=== PATIENT | male | born 1985 | race Caucasian/White ===

== ENCOUNTER 2016-11-16 20:47 | Emergency (ER) | payer SELFPAY ==
[~2016-11-16] VITALS: Ht 188 cm; Wt 72.6 kg
[2016-11-16] MEDS ORDERED: ACETAMINOPHEN 325 MG TAB PO ONE (21:15)
[2016-11-16] MEDS ORDERED: IBUPROFEN 600 MG TAB PO ONE (21:15)
[2016-11-16] MEDS ORDERED: SODIUM CHLORIDE 0.9% 1,000 ML IV ONE (22:14)
[2016-11-16 22:33] LABS: Albumin 3.7 g/dL (3.4-5.0); Anion Gap 10 (5-15); Aspartate Aminotransferase 18 U/L (15-37); BUN/Creatinine Ratio 22.9; Blood Urea Nitrogen 22 mg/dL (7-18); Calcium 8.4 mg/dL (8.5-10.1); Carbon Dioxide 25 mmol/L (21-32); Chloride 102 mmol/L (98-107); GFR African American 118 mL/min; GFR Non-African American 98 mL/min; Glucose 104 mg/dL (74-106); Hematocrit 46.4 % (41.0-53.0); Hemoglobin 15.5 g/dL (13.5-17.5); Mean Corpuscular Hemoglobin 28.6 pg (28.0-32.0); Mean Corpuscular Hgb Conc. 33.3 g/dL (32.0-36.0); Mean Corpuscular Volume 85.8 fL (80.0-100.0); Mean Platelet Volume 7.9 fL (7.4-10.4); Platelet Count (auto) 271 10^3/uL (140-450); Potassium 3.6 mmol/L (3.5-5.1); Red Cell Distribution Width 12.4 % (11.6-16.0); SUSPECT VIEW TRANSMISSION; Sodium 137 mmol/L (136-145); White Blood Cell 19.9 10^3/uL (4.4-10.8)
[2016-11-16 22:38] LABS: Alkaline Phosphatase 98 U/L (45-117); Bilirubin, Total 0.8 mg/dL (0.2-1.0); Total Protein 7.6 g/dL (6.4-8.2)
[2016-11-16 22:53] LABS: Metamyelocytes % 0; Myelocytes % 0; Promyelocytes % 0; Reactive Lymphocytes 0
[2016-11-16 23:05] LABS: Large Platelets FEW; Ovalocytes FEW; Platelet Estimate Adequa
[2016-11-17] MEDS ORDERED: PIPERACILLIN-TAZOB 3.375GM 100 ML IV ONE (01:15)
[2016-11-17] MEDS ORDERED: ONDANSETRON HCL 4 MG/2 ML VIAL ONE (03:04)
[2016-11-17] MEDS ORDERED: ONDANSETRON HCL 4 MG/2 ML VIAL IV ONE (03:15)
[2016-11-17 04:01] VITALS: BP 113/71
== END 2016-11-17 04:20 | disposition home or self-care (01) ==
LOC: ER 20:51
DX: R51 Headache (principal); Z87.820 Personal history of traumatic brain injury; H91.90 Unspecified hearing loss, unspecified ear; H54.0 Blindness, both eyes
CPT/HCPCS: 36415; 70450; 71010; 80053; 84484; 85007; 85027; 87040; 96361; 96365; 96366; 96375; 99291; J2405; J2543